=== PATIENT | female | born 1940 | race Caucasian/White ===

== ENCOUNTER 2023-01-08 07:42 | Outpatient (OUT) | payer MEDICARE, MEDICAID, SELFPAY ==
[2023-01-08 08:15] LABS: Basophils Percent Auto 0.6 % (0.2-2.0); Eosinophils Absolute Auto 0.2 10^3/uL (0.0-0.7); Eosinophils Percent Auto 2.9 % (0.9-7.0); Hematocrit 43.6 % (36.0-48.0); Hemoglobin 14.2 g/dL (12.0-16.0); Immature Granulocytes Abs Auto 0.04 10^3/uL (0.00-0.03); Immature Granulocytes Pct Auto 0.6 % (0.0-0.5); Lymphocytes Absolute Auto 1.6 10^3/uL (1.2-3.8); Lymphocytes Percent Auto 22.3 % (20.5-60.0); Mean Corpuscular HGB Conc 32.6 g/dL (29.9-35.2); Mean Corpuscular Hemoglobin 27.7 pg (26.7-34.0); Monocytes Absolute Auto 0.7 10^3/uL (0.3-0.8); Monocytes Percent Auto 9.9 % (1.7-12.0); Neutrophils Absolute Auto 4.6 10^3/uL (1.4-6.5); Neutrophils Percent Auto 63.7 % (43.0-75.0); Platelet Count 247 10^3/uL (150-450); Red Blood Count 5.13 10^6/uL (4.20-5.40); Red Cell Distribution Width 13.7 % (11.0-15.0); White Blood Count 7.2 10^3/uL (4.0-11.0)
[2023-01-08 09:22] LABS: Estimated Average Glucose 140 mg/dL; Glycohemoglobin A1C 6.5 % (4.5-6.2)
[2023-01-08 09:55] LABS: Microalbumin Urine Random 3.2 mg/dL (<=30.0)
[2023-01-08 09:58] LABS: Alanine Aminotransferase 41 U/L (14-59); Albumin Level 3.6 g/dL (3.4-5.0); Alkaline Phosphatase 63 U/L (46-116); Anion Gap 14.2; Aspartate Amino Transferase 19 U/L (15-37); BUN Creatinine Ratio 20.5; Bilirubin Direct 0.1 mg/dL (0.0-0.2); Bilirubin Total 0.4 mg/dL (0.2-1.0); Calcium 9.1 mg/dL (8.5-10.1); Chloride 102 mmol/L (98-107); Chol HDL Ratio 3.4; Cholesterol 143 mg/dL (<=200); Estimated GFR (African America >60 (>=60); Estimated GFR (Non-African Ame >60 (>=60); Globulin 3.7 g/dL; Glucose 149 mg/dL (74-106); HDL Cholesterol 42 mg/dL (40-60); LDL Cholesterol Calculated 74.4 mg/dL; Potassium 4.2 mmol/L (3.5-5.1); Sodium 140 mmol/L (136-145); Total Protein 7.3 g/dL (6.4-8.2); Triglycerides 133 mg/dL (<=150); VLDL CHOLESTEROL 26.6 mg/dL
== END 2023-01-08 07:43 | disposition home or self-care (01) ==
PROVIDERS: PCP Family Medicine; Visit Provider Family Medicine
DX: E11.65 Type 2 diabetes mellitus with hyperglycemia (principal); Z79.899 Other long term (current) drug therapy; I10 Essential (primary) hypertension
CPT/HCPCS: 36415; 80048; 80061; 80076; 82043; 83036; 85025

== ENCOUNTER 2023-07-17 11:50 | Outpatient (OUT) | payer MEDICARE, SELFPAY ==
[2023-07-17 12:17] LABS: Estimated Average Glucose 143 mg/dL; Glycohemoglobin A1C 6.6 % (4.5-6.2)
== END 2023-07-17 11:51 | disposition home or self-care (01) ==
LOC: LAB 11:51
PROVIDERS: PCP Family Medicine; Visit Provider Family Medicine
DX: E11.65 Type 2 diabetes mellitus with hyperglycemia (principal)
CPT/HCPCS: 36415; 83036

== ENCOUNTER 2024-01-14 07:53 | Outpatient (OUT) | payer MEDICARE, SELFPAY ==
[2024-01-14 08:12] LABS: Basophils Percent Auto 0.4 % (0.2-2.0); Eosinophils Absolute Auto 0.3 10^3/uL (0.0-0.7); Eosinophils Percent Auto 3.8 % (0.9-7.0); Hematocrit 40.1 % (36.0-48.0); Immature Granulocytes Abs Auto 0.03 10^3/uL (0.00-0.03); Immature Granulocytes Pct Auto 0.4 % (0.0-0.5); Lymphocytes Absolute Auto 1.9 10^3/uL (1.2-3.8); Lymphocytes Percent Auto 27.7 % (20.5-60.0); Mean Corpuscular HGB Conc 32.4 g/dL (29.9-35.2); Mean Corpuscular Hemoglobin 28.1 pg (26.7-34.0); Mean Corpuscular Volume 86.6 fL (81.0-99.0); Mean Platelet Volume 10.9 fL (9.5-13.5); Monocytes Absolute Auto 0.8 10^3/uL (0.3-0.8); Neutrophils Absolute Auto 3.9 10^3/uL (1.4-6.5); Neutrophils Percent Auto 55.7 % (43.0-75.0); Platelet Count 261 10^3/uL (150-450); Red Blood Count 4.63 10^6/uL (4.20-5.40); Red Cell Distribution Width 14.6 % (11.0-15.0); White Blood Count 6.9 10^3/uL (4.0-11.0)
--- OUTSIDE RECORDS SUMMARY | 2024-01-14 08:13 | XMS_ITS | CCD ---
Author Organization [facility] Care Team Providers Care Manager Training And Development Name Role Phone HERMES, DR EDWIGE Hennessy Consulting Unavailable NADERER, DR EDWIGE Hennessy Attending Unavailable NADERER, DR EDWIGE Hennessy Admitting Unavailable NADERER, DR EDWIGE Hennessy Primary Care Unavailable NADERER, DR EDWIGE Hennessy Primary Care Unavailable NADERER, DR EDWIGE Hennessy Consulting Unavailable NADERER, DR EDWIGE Hennessy Attending Unavailable NADERER, DR EDWIGE Hennessy Admitting Unavailable NADERER, EDWIGE Attending Unavailable NADERER, EDWIGE Attending Unavailable Problems Active Problems Problem Classification Problem Date Documented Da te Episodic/Chronic Diabetes mellitus with complications (5 sources) Type 2 diabetes mellitus with hyperglycemia; Translations: [TYPE 2 DM W/HYPERGLYCEMIA] Onset: 01-13-2022 Chronic Essential hypertension (4 sources) Essential (primary) hypertension; Translations: [ESSENTIAL PRIMARY HYPERTENSION] Onset: 01-11-2022 Chronic Past or Other Problems Problem Classification Problem Date Documented Da te Episodic/Chronic Other aftercare (1 source) Other long term acute care registered nurse (current) drug therapy; Translations: [OTH [employer]OL[employer]S CURRENT DRUG THERAPY] Onset: 01-13-2022 Episodic Results Test Name Value Interpretation Reference Range Facil ity GLYCOHEMOGLOBIN A1Con 2022 ADA RECOMMENDATION SEE BELOW Normal [facility] Comment on above: Result Comment: ADA RECOMMENDED LIMIT 4.0 - 6.0 ADA THERAPEUTIC TARGET < 7.0 ACTION SUGGESTED > 7.0 Performed By: #### A 1C #### [facility] [address] [address] [address] Sanya Jay Glucose [Mass/Vol] 146 mg/dL Normal [facility] Comment on above: Performed By: #### A 1C #### [facility] [address] [place], [place] [address] Dr. Sanya Jay HbA1c (Bld) [Mass fraction] 6.7 % Critically high 4.5-6.2 [facility] Comment on above: Performed By: #### A 1C #### [facility] [address] [place] [address] Dr. Sanya Jay CBC AUTO DIFFon 01-11-2022 BASO # 0.0 103/ul Normal 0.0-0.1 [facility] Comment on above: Performed By: #### C BC #### [facility] [address] [place] [address] Dr. Sanya Jay Basophils/100 WBC (Bld) 0.6 % Normal 0.2-2.0 [facility] Comment on above: Performed By: #### C BC #### [facility] [address] [place] [address] Dr. Sanya Jay EO # 0.2 103/ul Normal 0.0-0.7 [facility] Comment on above: Performed By: #### C BC #### [facility] [address] [place] [address] Dr. Sanya Jay Eosinophils/100 WBC (Bld) 3.9 % Normal 0.9-7.0 [facility] Comment on above: Performed By: #### C BC #### [facility] [address] [place] [address] Dr. Sanya Jay Erythrocyte distribution width (RBC) [Ratio] 13.5 % Normal 11.0-15.0 [facility] Comment on above: Performed By: #### C BC #### [facility] [address] [place] [address] Dr. Sanya Jay Hematocrit (Bld) [Volume fraction] 41.0 % Normal 36.0-48.0 [facility] Comment on above: Performed By: #### C BC #### [facility] [address] [place] [address] Dr. Sanya Jay Hemoglobin (Bld) [Mass/Vol] 13.2 g/dL Normal 12.0-16.0 [facility] Comment on above: Performed By: #### C BC #### [facility] [address] [place] [address] Dr. Sanya Jay IG # 0.05 10e3/ul Critically high 0.00-0.03 [facility] Comment on above: Performed By: #### C BC #### [facility] [address] [place] [address] Dr. Sanya Jay IG % 1.0 % Critically high 0.0-0.5 [facility] Comment on above: Performed By: #### C BC #### [facility] [address] [place] [address] Dr. Sanya Jay LYMPH # 1.3 103/ul Normal 1.2-3.8 [facility] Comment on above: Performed By: #### C BC #### [facility] [address] [place] [address] Dr. Sanya Jay Lymphocytes/100 WBC (Bld) 25.9 % Normal 20.5-60.0 [facility] Comment on above: Performed By: #### C BC #### [facility] [address] [place] [address] Dr. Sanya Jay MANUAL DIFF REQ NO Normal [facility] Comment on above: Performed By: #### C BC #### [facility] [address] [place] [address] Dr. Sanya Jay MCH (RBC) [Entitic mass] 27.8 pg Normal 26.7-34.0 [facility] Comment on above: Performed By: #### C BC #### [facility] [address] [place] [address] Dr. Sanya Jay MCHC (RBC) [Mass/Vol] 32.2 g/dL Normal 29.9-35.2 [facility] Comment on above: Performed By: #### C BC #### [facility] [address] [place] [address] Dr. Sanya Jay MCV (RBC) [Entitic vol] 86.3 fL Normal 81.0-99.0 [facility] Comment on above: Performed By: #### C BC #### [facility] [address] [place] [address] Dr. Sanya Jay MONO # 0.6 103/ul Normal 0.3-0.8 [facility] Comment on above: Performed By: #### C BC #### [facility] [address] [address] [address] Sanya Jay Monocytes/100 WBC (Bld) 12.4 % Critically high 1.7-12.0 [facility] Comment on above: Performed By: #### C BC #### [facility] [address] [address] [address] Sanya Jay NEUT # 2.7 103/ul Normal 1.4-6.5 [facility] Comment on above: Performed By: #### C BC #### [facility] [address] [address] [address] Sanya Jay Neutrophils/100 WBC (Bld) 56.2 % Normal 43.0-75.0 [facility] Comment on above: Performed By: #### C BC #### [facility] [address] [place] [address] Dr. Sanya Jay Platelet mean volume (Bld) [Entitic vol] 11.7 fL Normal 9.5-13.5 [facility] Comment on above: Performed By: #### C BC #### [facility] [address] [place] [address] Dr. Sanya Jay PLT 240 103/ul Normal 150-450 [facility] Comment on above: Performed By: #### C BC #### [facility] [address] [place] [address] Dr. Sanya Jay RBC 4.75 106/ul Normal 4.20-5.40 [facility] Comment on above: Performed By: #### C BC #### [facility] [address] [place] [address] Dr. Sanya Jay WBC 4.8 103/ul Normal 4.0-11.0 [facility] Comment on above: Performed By: #### C BC #### [facility] [address] [place] [address] Dr. Sanya Jay GLYCOHEMOGLOBIN A1Con 2021 ADA RECOMMENDATION SEE BELOW Normal [facility] Comment on above: Result Comment: ADA RECOMMENDED LIMIT 4.0 - 6.0 ADA THERAPEUTIC TARGET < 7.0 ACTION SUGGESTED > 7.0 Performed By: #### A 1C #### [facility] [address] [address] [address] Sanya Jay Glucose [Mass/Vol] 140 mg/dL Normal [facility] Comment on above: Performed By: #### A 1C #### [facility] [address] [address] [address] Sanya Jay HbA1c (Bld) [Mass fraction] 6.5 % Critically high 4.5-6.2 [facility] Comment on above: Performed By: #### A 1C #### [facility] [address] [address] [address] Sanya Jay LIPID PROFILEon 01-11-2022 CHOL-HDL RATIO NORM SEE BELOW Normal [facility] Comment on above: Result Comment: 3.3 - 4.4 LOW RISK 4.4 - 7.1 AVERAGE RISK 7.1 - 11.0 MODERATE RISK >11.0 HIGH RISK Performed By: #### L IPID, BMP, AST, ALT #### [facility] [address] [address] [address] Sanya Jay Cholesterol [Mass/Vol] 123 mg/dL Normal <=200 [facility] Comment on above: Performed By: #### L IPID, BMP, AST, ALT #### [facility] [address] [address] [address] Sanya Jay Cholesterol in HDL [Mass/Vol] 42 mg/dL Normal 40-60 [facility] Comment on above: Performed By: #### L IPID, BMP, AST, ALT #### [facility] [address] [address] [address] Sanya Jay Cholesterol in LDL [Mass/Vol] 57.8 mg/dL Normal [facility] Comment on above: Performed By: #### L IPID, BMP, AST, ALT #### [facility] [address] [address] [address] Sanya Jay Cholesterol.total/Cho lesterol in HDL [Mass ratio] 2.9 {ratio} Normal [facility] Comment on above: Performed By: #### L IPID, BMP, AST, ALT #### [facility] [address] [address] [address] Sanya Jay HDL NORMAL > or = 60 mg/dl - LOW CARDIOVASCULAR RISK <40 mg/dl - HIGH CARDIOVASCULAR RISK Normal [facility] Comment on above: Performed By: #### L IPID, BMP, AST, ALT #### [facility] [address] [address] [address] Sanya Jay LDL CALC NORMAL SEE BELOW Normal [facility] Comment on above: Result Comment: <100 mg/dl OPTIMAL 100 - 129 mg/dl NEAR OR ABOVE OPTIMAL 130 - 159 mg/dl BORDERLINE HIGH 160 - 189 mg/dl HIGH >190 mg/dl VERY HIGH Performed By: #### L IPID, BMP, AST, ALT #### [facility] [address] [address] [address] Sanya Jay Triglyceride [Mass/Vol] 116 mg/dL Normal <=150 [facility] Comment on above: Performed By: #### L IPID, BMP, AST, ALT #### [facility] [address] [address] [address] Sanya Jay VLDL CALC 23.2 mg/dL Normal [facility] Comment on above: Performed By: #### L IPID, BMP, AST, ALT #### [facility] [address] [address] [address] Sanya Jay PROF CHEM 8 (BAS METB)on Anion gap [Moles/Vol] 13.4 mmol/L Normal [facility] Comment on above: Performed By: #### L IPID, BMP, AST, ALT #### [facility] [address] [address] [address] Sanya Jay Calcium [Mass/Vol] 9.0 mg/dL Normal 8.5-10.1 [facility] Comment on above: Performed By: #### L IPID, BMP, AST, ALT #### [facility] [address] [address] [address] Sanya Jay Chloride [Moles/Vol] 103 mmol/L Normal 98-107 [facility] Comment on above: Performed By: #### L IPID, BMP, AST, ALT #### [facility] [address] [address] [address] Sanya Jay CO2 [Moles/Vol] 26.8 mmol/L Normal 21.0-32.0 [facility] Comment on above: Performed By: #### L IPID, BMP, AST, ALT #### [facility] [address] [address] [address] Sanya Jay Creatinine [Mass/Vol] 0.86 mg/dL Normal 0.55-1.02 [facility] Comment on above: Performed By: #### L IPID, BMP, AST, ALT #### [facility] [address] [address] [address] Sanya Jay EGFR-AF CYPRIOT >60 Normal >=60 [facility] Comment on above: Performed By: #### L IPID, BMP, AST, ALT #### [facility] [address] [address] [address] Sanya Jay EGFR-NON AF CYPRIOT >60 Normal >=60 [facility] Comment on above: Performed By: #### L IPID, BMP, AST, ALT #### [facility] [address] [place] [address] Dr. Sanya Jay Glucose [Mass/Vol] 200 mg/dL Critically high 74-106 [facility] Comment on above: Performed By: #### L IPID, BMP, AST, ALT #### [facility] [address] [address] [address] Sanya Jay Potassium [Moles/Vol] 4.2 mmol/L Normal 3.5-5.1 [facility] Comment on above: Performed By: #### L IPID, BMP, AST, ALT #### [facility] [address] [address] [address] Sanya Jay Sodium [Moles/Vol] 139 mmol/L Normal 136-145 [facility] Comment on above: Performed By: #### L IPID, BMP, AST, ALT #### [facility] [address] [address] [address] Sanya Jay Urea nitrogen [Mass/Vol] 19.0 mg/dL Critically high 7.0-18.0 [facility] Comment on above: Performed By: #### L IPID, BMP, AST, ALT #### [facility] [address] [place], [place] [address] Dr. Sanya Jay Urea nitrogen/Creatinine [Mass ratio] 22.1 mg/mg Normal [facility] Comment on above: Performed By: #### L IPID, BMP, AST, ALT #### [facility] [address] [address] [address] Sanya Jay SGOTon 01-11-2022 AST [Catalytic activity/Vol] 13 U/L Critically low 15-37 [facility] Comment on above: Performed By: #### L IPID, BMP, AST, ALT #### [facility] [address] [place] [address] Dr. Sanya Jay [facility] 01-11-2022 ALT [Catalytic activity/Vol] 22 U/L Normal 14-59 [facility] Comment on above: Performed By: #### L IPID, BMP, AST, ALT #### [facility] [address] [place] [address] Dr. Sanya aJy Encounters Encounter Date Encounter Type Care Provider Facility Start: 01-12-2024 End: 01-12-2024 ambulatory EDWIGE MIRZA Not Available Start: 07-17-2023 End: 07-17-2023 ambulatory EDWIGE MIRZA Not Available Start: 07-10-2022 End: 07-11-[address] EDWIGE MIRZA Facility:[facility] Start: 01-11-2022 End: 01-12-[address] EDWIGE MIRZA Facility:[facility] Payers Date Payer Category Payer Medicare [id number] 1940 Unknown [id number] 1940 Unknown [id number] 1940 Unknown [id number] 1940 Unknown [id number] Medicaid [id number] Summary Purpose Family History No Family History Records FoundNo Family History Records Found Advance Directives No Advanced Directives Records FoundNo Advanced Directives Records Found Additional Source Comments INFORMATION SOURCE (unrecogn ized section and content) DATE CREATED AUTHOR 07/14/2022 [facility] DATE CREATED AUTHOR AUTHOR'S ORGANIZ ATION 01/13/2024 [facility] EPIC FOR RECORDS PERTAINING TO PATIENTS WHO ARE OR HAVE BEEN ENROLLED IN A CHEMICAL DEPENDENCY/SUBSTANCEABUSE PROGRAM, SOME INFORMATION MAY BE OMITTED. This clinical summary was aggregated from multiple sources. Caution should be exercised in using it in the provision of clinical care. This summary normalizes information from multiple sources, and as a consequence, information in this document may materially change the coding, format and clinical context of patient data. In addition, data may be omitted in some cases. CLINICAL DECISIONS SHOULD BE BASED ON THE PRIMARY CLINICAL RECORDS. [facility] [employer] provides no warranty or guarantee of the accuracy or completeness of information in this document.
[2024-01-14 08:48] LABS: Alanine Aminotransferase 20 U/L (14-59); Albumin Globulin Ratio 0.9; Albumin Level 3.3 g/dL (3.4-5.0); Alkaline Phosphatase 71 U/L (46-116); Anion Gap 14.3; Aspartate Amino Transferase 12 U/L (15-37); Bilirubin Direct 0.1 mg/dL (0.0-0.2); Bilirubin Total 0.4 mg/dL (0.2-1.0); Calcium 9.2 mg/dL (8.5-10.1); Carbon Dioxide 27.5 mmol/L (21.0-32.0); Chloride 104 mmol/L (98-107); Chol HDL Ratio 2.8; Cholesterol 138 mg/dL (<=200); Estimated GFR (African America >60 (>=60); Estimated GFR (Non-African Ame >60 (>=60); Globulin 3.5 g/dL; Glucose 114 mg/dL (74-106); HDL Cholesterol 49 mg/dL (40-60); Potassium 3.8 mmol/L (3.5-5.1); Sodium 142 mmol/L (136-145); Total Protein 6.8 g/dL (6.4-8.2); Triglycerides 130 mg/dL (<=150)
[2024-01-14 10:45] LABS: Estimated Average Glucose 137 mg/dL; Glycohemoglobin A1C 6.4 % (4.5-6.2)
== END 2024-01-14 07:54 | disposition home or self-care (01) ==
LOC: LAB 07:55
PROVIDERS: PCP Family Medicine; Visit Provider Family Medicine
DX: Z79.899 Other long term (current) drug therapy (principal); E66.9 Obesity, unspecified; E11.65 Type 2 diabetes mellitus with hyperglycemia; I10 Essential (primary) hypertension
CPT/HCPCS: 36415; 80048; 80061; 80076; 82043; 83036; 84443; 85025

== ENCOUNTER 2024-10-21 11:16 | Outpatient (OUT) | payer MEDICARE, SELFPAY ==
--- OUTSIDE RECORDS SUMMARY | 2024-10-21 10:00 | XMS_ITS | Encounter Summary ---
Author Organization [facility] Address [address] [address] [place] [address] Care Team Providers Care Ed Case Manager Name Role Phone Alen Dunham MD Primary Care Provider [phone] Alen Dunham MD Unavailable Reason for Visit * Reason Comments Follow-up 6 m Encounter Details Date Type Department Care Team (Late st Contact Info) Description 10/21/2024 10:00 AM EDT [facility] [address] [address] Alen Dunham MD [address] [place] [id number] Type 2 diabetes mellitus with hyperglycemia, without long-term current use of insulin ([facility]) (Primary Dx); Essential hypertension, benign ([facility]); Stress reaction; Generalized osteoarthritis of multiple sites; Gastroesophageal reflux disease without esophagitis; Statin myopathy; Class 2 severe obesity due to excess calories with serious comorbidity and body mass index (BMI) of 35.0 to 35.9 in adult ([facility]) Social History Tobacco Use Types Packs/Day Years Used Date Smoking Tobacco: Never PHQ-2 Answer Date Recorded Patient Health Questionnaire-2 Score 0 04/07/2024 Comments Unknown Sex and Gender Information Value Date Recorded Sex Assigned at Not on file Legal Sex Female 7:55 AM EDT Gender Identity Not on file Sexual Orientation Not on file documented as of this encounter Last Filed Vital Signs Vital Sign Reading Time Taken Comments Blood Pressure 152/68 10/21/2024 10:02 AM EDT Pulse 64 10/21/2024 10:02 AM EDT Temperature 36.2 C (97.1 F) 10/21/2024 10:02 AM EDT Respiratory Rate 20 10/21/2024 10:02 AM EDT Oxygen Saturation 96% 10/21/2024 10:02 AM EDT Inhaled Oxygen Concentration - - Weight 88 kg (194 lb) 10/21/2024 10:02 AM EDT Height 157.5 cm (5' 2 ) 10/21/2024 10:02 AM EDT Body Mass Index 35.48 10/21/2024 10:02 AM EDT documented in this encounter Progress Notes * Alen Dunham MD - 10/21/2024 10:59 AM EDTAssociated Problem(s): Class 2 severe obesity due to excess calories with serious comorbidity and body mass index (BMI) of 35.0 to 35.9 in adult ([facility]) Weight loss indicated. * Alen Dunham MD - 10/21/2024 10:58 AM EDTAssociated Problem(s): Type 2 diabetes mellitus with hyperglycemia, without long-term current use of insulin ([facility]) Reports BS controlled and due for A1C. Stick to ADA diet and limit carbs. * Alen Dunham MD - 10/21/2024 10:58 AM EDTAssociated Problem(s): Stress reaction Stress worse but doesn't want medication and monitor. * Alen Dunham MD - 10/21/2024 10:58 AM EDTAssociated Problem(s): Statin myopathy Did not tolerate lipitor. * Alen Dunham MD - 10/21/2024 10:58 AM EDTAssociated Problem(s): Generalized osteoarthritis of multiple sites Pain stable and use naproxen PRN. Increase activity and walk regularly. * Alen Dunham MD - 10/21/2024 10:58 AM EDTAssociated Problem(s): Gastroesophageal reflux disease without esophagitis Symptoms controlled with omeprazole and continue. * Alen Dunham MD - 10/21/2024 10:58 AM EDTAssociated Problem(s): Essential hypertension, benign (CMS/HCC) BP again elevated and increase valsartan. Monitor PRN. Discussed DASH diet. * Alen Dunham MD - 10/21/2024 10:00 AM EDT Images from the original note were not included. Subjective Patient ID: Anastasiia Avitia is a 83 y.o. female who presents for Follow-up (6 m). Follow up DM, HTN, OA, stress, and GERD. BS well controlled and ranges 70-100 but average around 90. Tries to eat well and stick to ADA diet. Denies signs of elevated BS such as polyuria, polyphagia or polydipsia. Not checking BP away from office and elevated again today. Reports increased stress. Taking medication daily and tolerating without side effects. Anxiety worse. Son moved back in with her and has no job. Her daughter's do not like or talk to her. [id number]. Nervous and worry allthe time. Stressed out and at times overwhelmed. Thought racing and hard to clear mind. OA stable. Stiff and pain in hands, knees, and low back. Stiffness worse in am but improved once up and moving.Using OTC PRN and helps. GERD controlled with omeprazole. Denies epigastric pain or burning and notwaking up with symptoms. Review of Systems Respiratory: Negative for cough, shortness of breath and wheezing. Cardiovascular: Negative for chest pain and palpitations. Gastrointestinal: Negative for abdominal pain, diarrhea, nausea and vomiting. Genitourinary: Negative for dysuria. Objective Physical Exam Constitutional: General: She is not in acute distress. Appearance: Normal appearance. HENT: Head: Normocephalic. Right Ear: Tympanic membrane normal. Left Ear: Tympanic membrane normal. Eyes: Extraocular Movements: Extraocular movements intact. Pupils: Pupils are equal, round, and reactive to light. Cardiovascular: Rate and Rhythm: Normal rate and regular rhythm. Heart sounds: No murmur heard. No friction rub. No gallop. Pulmonary: Effort: Pulmonary effort is normal. Breath sounds: Normal breath sounds. No wheezing, rhonchi or rales. Abdominal: General: Bowel sounds are normal. There is no distension. Palpations: Abdomen is soft. Tenderness: There is no abdominal tenderness. There is no guarding or rebound. Musculoskeletal: Cervical back: Neck supple. Right lower leg: No edema. Left lower leg: No edema. Neurological: Mental Status: She is alert. Assessment/Plan Problem List Items Addressed This Visit Essential hypertension, benign (CMS/HCC) BP again elevated and increase valsartan. Monitor PRN. Discussed DASH diet. Relevant Medications valsartan (Diovan) 320 MG tablet Gastroesophageal reflux disease without esophagitis Symptoms controlled with omeprazole and continue. Type 2 diabetes mellitus with hyperglycemia, without long-term current use of insulin (CMS/HCC) - Primary Reports BS controlled and due for A1C. Stick to ADA diet and limit carbs. Relevant Orders Hemoglobin A1c Stress reaction Stress worse but doesn't want medication and monitor. Generalized osteoarthritis of multiple sites Pain stable and use naproxen PRN. Increase activity and walk regularly. Statin myopathy Did not tolerate lipitor. documented in this encounter Plan of Treatment Upcoming Encounters Date Type Department Care Team (Late st Contact Info) Description 04/12/2025 10:30 AM EST Office Visit [facility] [address] [address] Alen Dunham MD [address] [place] [address] Scheduled Orders Name Type Priority Associated Diagnoses Orde r Schedule Hemoglobin A1c Lab Routine Type 2 diabetes mellitus with hyperglycemia, without long-term current use of insulin ([facility]) Expected: 10/21/2024 (Approximate), Expires: 10/21/2025 documented as of this encounter Visit Diagnoses Diagnosis Type 2 diabetes mellitus with hyperglycemia, without long-term current use of insulin ([facility])- Primary Essential hypertension, benign ([facility]) Essential hypertension, benign Stress reaction Unspecified acute reaction to stress Generalized osteoarthritis of multiple sites Generalized osteoarthrosis, involving multiple sites Gastroesophageal reflux disease without esophagitis Esophageal reflux Statin myopathy Toxic myopathy Class 2 severe obesity due to excess calories with serious comorbidity and body mass index (BMI) of 35.0 to 35.9 in adult ([facility]) documented in this encounter Additional Health Concerns Assessment Noted Time PHQ-9 Depression Total Score: 0 04/07/20 24 10:00 AM EST documented as of this encounter Care Teams Ed Case Manager Relationship Specialty Start Date End Date Alen Dunham MD [address] [place] [phone] PCP - General Family Medicine 07/04/23 Alen Dunham MD [address] [place] [address] PCP - ACO Reach 06/25/24 documented as of this encounter
--- OUTSIDE RECORDS SUMMARY | 2024-10-21 11:24 | XMS_ITS | Clinical Summary ---
Author Organization [facility] Address [address] [facility] [place] [address] Care Team Providers Care Delivery Crew Worker Name Role Phone Alen Dunham MD Primary Care Provider [phone] Alen Dunham MD Unavailable Allergies Active Allergy Reactions Criticality Noted Date Comments Aspirin 04/07/2024 Sulfamethoxazole-Trimetho prim Other,GI intolerance,Dizziness 07/04/2023 confused Lisinopril Cough 07/04/2023 Ibuprofen GI intolerance 07/04/2023 GI upset Penicillins GI intolerance 07/04/2023 Pentazocine Other 07/04/2023 Confusion Diazepam GI intolerance 07/04/2023 Medications amLODIPine (Norvasc) 10 MG tabletIndicatio ns:Essential hypertension, benign (CMS/HCC) Take 1 tablet (10 mg) by mouth Daily 30 tablet 4 025 Active metoprolol tartrate (Lopressor) 50 MG tabletIndicatio ns:Essential hypertension, benign (CMS/HCC) Take 1 tablet (50 mg) by mouth in the morning and 1 tablet (50 mg) before bedtime. 60 tablet 4 025 Active metFORMIN XR (Glucophage-XR) 500 MG 24 hr tabletIndicatio ns:Type 2 diabetes mellitus with hyperglycemia, without long-term current use of insulin (CMS/HCC) Take 2 tablets (1,000 mg) by mouth in the morning and 2 tablets (1,000 mg) before bedtime. 120 tablet 11 4 025 Active naproxen (Naprosyn) 500 MG tabletIndicatio ns:Chronic pain of right knee Take 1 tablet (500 mg) by mouth in the morning and 1 tablet (500 mg) in the evening. Take with meals. 180 tablet 3 5 026 Active pioglitazone (Actos) 30 MG tabletIndicatio ns:Type 2 diabetes mellitus with hyperglycemia, without long-term current use of insulin (CMS/HCC) Take 1 tablet (30 mg) by mouth Daily 90 tablet 3 5 026 Active omeprazole (PriLOSEC) [address] capsuleIndicati ons:Gastroesoph ageal reflux disease without esophagitis Take 1 capsule (20 mg) by mouth in the morning. Take before meals. 30 capsule 11 5 026 Active glipiZIDE (Glucotrol) 10 MG tabletIndicatio ns:Type 2 diabetes mellitus with hyperglycemia, without long-term current use of insulin (CMS/HCC) Take 2 tablets (20 mg) by mouth in the morning and 2 tablets (20 mg) in the evening. Take before meals. 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 Medicare annual wellness visit, subsequent 04/07 Assessment & Plan (04/07/2024 10:43 AM EST): Reviewed labs. Discussed proper diet and regular aerobic exercise. Need aerobic exercise 5-6 days a week for 30 minutes at a time. Smaller portions and limit total calories. Tetanus every 10 years. Advised not to smoke. Encounter for long-term current use of medicatio n 01/12/2024 Essential hypertension, benign 07/17/2023 Assessment & Plan (10/21/2024 10:58 AM EDT): BP again elevated and increase valsartan. Monitor PRN. Discussed DASH diet. Assessment & Plan (01/12/2024 10:46 AM EDT): BP elevated and increase valsartan. Monitor PRN. Discussed DASH diet. Assessment & Plan (07/17/2023 12:27 PM EST): BP controlled and monitor PRN. BPPV (benign paroxysmal positional vertigo) 06/20 Chronic pain of right knee 07/17/2023 Gastroesophageal reflux disease without esophagi tis 07/17/2023 Assessment & Plan (10/21/2024 10:58 AM EDT): Symptoms controlled with omeprazole and continue. Assessment & Plan (01/12/2024 10:46 AM EDT): Symptoms controlled with omeprazole and continue. Assessment & Plan (07/17/2023 12:27 PM EST): Symptoms controlled with omeprazole and continue. Type 2 diabetes mellitus wit h hyperglycemia, without long-term current use of insulin 07/17/2023 Assessment & Plan (10/21/2024 10:58 AM EDT): Reports BS controlled and due for A1C. Stick to ADA diet and limit carbs. Assessment & Plan (01/12/2024 10:46 AM EDT): Reports BS controlled and due for A1C. Stick to ADA diet and limit carbs. Assessment & Plan (07/17/2023 12:28 PM EST): Reports BS controlled and due for A1C. Stick to ADA diet and limit carbs. Stress reaction 07/17/2023 Assessment & Plan (10/21/2024 10:58 AM EDT): Stress worse but doesn't want medication and monitor. Assessment & Plan (01/12/2024 10:46 AM EDT): Stress stable without medication and monitor. Assessment & Plan (07/17/2023 12:28 PM EST): Stress stable without medication and monitor. Class 2 severe obesity due t o excess calories with serious comorbidity and body mass index (BMI) of 35.0 to 35.9 in adult 07/17/2023 Assessment & Plan (10/21/2024 10:59 AM EDT): Weight loss indicated. Generalized osteoarthritis of multiple sites Assessment & Plan (10/21/2024 10:58 AM EDT): Pain stable and use naproxen PRN. Increase activity and walk regularly. Assessment & Plan (01/12/2024 10:46 AM EDT): Pain stable and use naproxen PRN. Increase activity and walk regularly. Assessment & Plan (07/17/2023 12:28 PM EST): Pain stable and use naproxen PRN. Increase activity and walk regularly. Resolved Problems Problem Noted Date Diagnosed Date Resolved Date Statin medication declined by patient 07/17/2023 04/07/2024 Encounters Date Type Department Care Team Description 10/21/2024 10:00 AM EDT Office Visit [facility] [address] [place] [phone] Alen Dunham MD Type 2 diabetes mellitus with hyperglycemia, without long-term current use of insulin (CMS/HCC) (Primary Dx); Essential hypertension, benign (CMS/HCC); Stress reaction; Generalized osteoarthritis of multiple sites; Gastroesophageal reflux disease without esophagitis; Statin myopathy; Class 2 severe obesity due to excess calories with serious comorbidity and body mass index (BMI) of 35.0 to 35.9 in adult ([facility]) 10/21/2024 Bamboo flowsheet [facility] [address] [place] [phone] Alen Dunham MD from Last 3 Months Family History Medical History Relation Name Comments Cancer Father Relation Name Status Comments Father Social History Tobacco Use Types Packs/Day Years Used Date Smoking Tobacco: Never Tobacco Cessation:Counseling Given: Not Answered PHQ-2 Answer Date Recorded Patient Health Questionnaire-2 Score 0 04/07/2024 Comments Unknown Sex and Gender Information Value Date Recorded Sex Assigned at Not on file Legal Sex Female 7:55 AM EDT Gender Identity Not on file Sexual Orientation Not on file Last Filed Vital Signs Vital Sign Reading [...] Mass Index 35.48 10/21/2024 10:02 AM EDT Plan of Treatment Upcoming Encounters Date Type Department Care Team (Late st Contact Info) Description 04/12/2025 10:30 AM EST Office Visit [facility] [address] [place] [address] Alen Dunham MD [address] [place] [phone] Health Maintenance Due Date Last Done Comments Pneumococcal Vaccine: 65+ Ye ars (1 of 2 - PCV) 1959 Diabetes: Hemoglobin A1C 07/16/2024 024, 07/17/2023, 04/13/2018 Diabetes: Urine Protein Screening 01/13/20252 024, 01/08/2023 Influenza Vaccine (Season Ended) 2025 Medicare Annual Wellness (AWV) 04/07/2025 04/07/2024 Diabetes: Retinopathy Screening 05/27/2025 Insurance MEDICARE Care Teams Delivery Crew Worker Relationship Specialty Start Date End Date Alen Dunham MD [address] [place] [phone] PCP - General Family Medicine 07/04/23 Alen Dunham MD [address] [place] [phone] PCP - ACO Reach 06/25/24
--- OUTSIDE RECORDS SUMMARY | 2024-10-21 11:24 | XMS_ITS | Encounter Summary ---
Author Organization [facility] Address [address] [facility] [place] [address] Care Team Providers Care Making Department Preparer Name Role Phone Alen Dunham MD Primary Care Provider [phone] Alen Dunham MD Unavailable Encounter Details Date Type Department Care Team (Late Contact Info) Description 10/21/2024 Bamboo flowsheet [facility] [address] [place] [phone] Alen Dunham MD [address] [place] [phone] Social History Tobacco Use Types Packs/Day Years Used Date Smoking Tobacco: Never PHQ-2 Answer Date Recorded Patient Health Questionnaire-2 Score 0 04/07/2024 Comments Unknown Sex and Gender Information Value Date Recorded Sex Assigned at Not on file Legal Sex Female 7:55 AM EDT Gender Identity Not on file Sexual Orientation Not on file documented as of this encounter Plan of Treatment Upcoming Encounters Date Type Department Care Team (Late st Contact Info) Description 04/12/2025 10:30 AM EST Office Visit [facility] [address] [place] [phone] Alen Dunham MD [address] [place] [phone] documented as of this encounter Visit Diagnoses Not on filedocumented in this encounter Additional Health Concerns Assessment Noted Time PHQ-9 Depression Total Score: 0 04/07/20 24 10:00 AM EST documented as of this encounter Care Teams Making Department Preparer Relationship Specialty Start Date End Date Alen Dunham MD [address] [place] [phone] PCP - General Family Medicine 07/04/23 Alen Dunham MD [address] [place] [phone] PCP - ACO Reach 06/25/24 documented as of this encounter
--- OUTSIDE RECORDS SUMMARY | 2024-10-21 11:24 | XMS_ITS | Clinical Summary ---
Author Organization [employer] tem Address [id number] [address] [place] [address] Care Team Providers Care Bulk Receiver Name Role Phone Alen Dunham MD Primary Care Provider [phone] Allergies Active Allergy Reactions Criticality Noted Date Comments Codeine 03/29/2018 Ibuprofen 03/29/2018 Penicillins 03/29/2018 Sulfa (Sulfonamide Antibiotics) 03/19 Pentazocine Lactate 03/29/2018 Diazepam 03/29/2018 Medications glipiZIDE (GLUCOTROL) 10 mg tablet Take 20 mg by mouth 2 (two) times a day before meals. Active metFORMIN (GLUCOPHAGE) 1000 mg tablet Take 2,000 mg by mouth 2 (two) times a day with meals. Active amLODIPine (NORVASC) 10 mg tablet Take 10 mg by mouth daily. Active losartan (COZAAR) 50 mg tablet Take 50 mg by mouth daily. Active metoprolol tartrate (LOPRESSOR) 50 mg tablet Take 50 mg by mouth 2 (two) times a day. Active omeprazole (PriLOSEC) 20 mg capsule Take 20 mg by mouth daily. Active naproxen (NAPROSYN) 500 mg tablet Take 500 mg by mouth 2 (two) times a day with meals. Active aspirin 81 mg Take 81 mg by mouth daily. Active ondansetron (ZOFRAN) 4 mg tablet Take 1 tablet (4 mg total) by mouth every 8 (eight) hours as needed for nausea or vomiting for up to 12 doses. 12 tablet 03/29/2018 Active Social History Tobacco Use Types Packs/Day Years Used Date Smoking Tobacco: Never Smokeless Tobacco: Never Childcare Answer Date Recorded Childcare Unknown 10/28/2018 Employment Answer Date Recorded Employment Unknown 10/28/2018 Purpose - Life Answer Date Recorded Purpose and direction in life Unknown Comments Unknown Sex and Gender Information Value Date Recorded Sex Assigned at Not on file Legal Sex Female 11:52 AM EDT Gender Identity Not on file Sexual Orientation Not on file Last Filed Vital Signs Vital Sign Reading Time Taken Comments Blood Pressure 138/47 03/29/2018 7:50 PM EST Pulse 90 03/29/2018 7:50 PM EST Temperature 36.2 C (97.2 F) 03/29/2018 6:01 PM EST Respiratory Rate 18 03/29/2018 7:50 PM EST Oxygen Saturation 96% 03/29/2018 6:01 PM EST Inhaled Oxygen Concentration - - Weight 87.5 kg (193 lb) 03/29/2018 6:01 PM EST Height 157.5 cm (5' 2 ) 03/29/2018 6:01 PM EST Body Mass Index 35.3 03/29/2018 6:01 PM EST Plan of Treatment Not on file Medical Devices Not on file Insurance MEDICARE MEDICAID [place] Care Teams Bulk Receiver Relationship Specialty Start Date End Date Alen Dunham MD PCP - General 10/21/16
[2024-10-21 12:24] LABS: Estimated Average Glucose 140 mg/dL; Glycohemoglobin A1C 6.5 % (4.5-6.2)
== END 2024-10-21 11:17 | disposition home or self-care (01) ==
LOC: LAB 11:19
PROVIDERS: PCP Family Medicine; Visit Provider Family Medicine
DX: E11.65 Type 2 diabetes mellitus with hyperglycemia (principal)
CPT/HCPCS: 36415; 83036

== ENCOUNTER 2025-02-25 14:10 | Emergency (ER) | payer MEDICARE, SELFPAY ==
--- OUTSIDE RECORDS SUMMARY | 2025-02-25 14:26 | XMS_ITS | CCD ---
Author Organization [facility] Care Team Providers Care Shot Fireman Name Role Phone DR ALEN MIRZA Consulting Unavailable HERMES, DR ALEN Hennessy Attending Unavailable HERMES, DR ALEN Hennessy Admitting Unavailable HERMES, DR ALEN Hennessy Primary Care Unavailable HERMES, DR ALEN Hennessy Primary Care Unavailable HERMES, DR ALEN Hennessy Consulting Unavailable HERMES, DR ALEN Hennessy Attending Unavailable HERMES, DR ALEN Hennessy Admitting Unavailable Alen Mirza MD Primary Care Provider [phone] HERMES, ALEN Attending Unavailable HERMES, ALEN Attending Unavailable HERMES, ALEN Attending Unavailable Alen Mirza MD Unavailable Allergies Allergy Classification Reported Allergen(s) Allergy Type Date of Onset Reaction(s) Facility (11 sources) Diazepam Allergy to substance 07-04-19 GI intolerance [facility] Healthcare (11 sources) Ibuprofen Drug Allergy 07-04-19 24 GI intolerance [facility] Healthcare (11 sources) Lisinopril Allergy to substance 07-04-19 24 Cough [facility] Healthcare (11 sources) Penicillins Drug Allergy 07-04-19 24 GI intolerance [facility] Healthcare (11 sources) Pentazocine Drug Allergy 07-04-19 24 Other [facility] Healthcare (11 sources) Sulfamethoxazole / Trimethoprim Drug Allergy 07-04-19 24 Other, GI intolerance, Dizziness [facility] Healthcare (6 sources) Aluminum aspirin Drug Allergy 04-07-20 24 [facility] Healthcare Medications Current Medications Medication Drug Class(es) Dates Sig (Normalized) Sig (Original) amLODIPine 10 mg oral tablet (11 sources) Dihydropyridine Calcium Channel Niharika Start: 12-17-2023 End: 12-16-2024 take 1 tablet by mouth once daily amLODIPine (Norvasc) 10 MG tablet Indications: Essential hypertension, benign (CMS/HCC) Take 1 tablet (10 mg) by mouth Daily 30 tablet 11 12/17/2023 12/16/2024 Active atorvastatin 10 mg oral tablet (5 sources) HMG-CoA Reductase Inhibitor Start: 04-07-2024 End: 10-21-2024 take 1 tablet by mouth at bedtime atorvastatin (Lipitor) 10 MG tablet Indications: Type 2 diabetes mellitus with hyperglycemia, without long-term current use of insulin (CMS/HCC) Take 1 tablet (10 mg) by mouth at bedtime 30 tablet 5 04/07/2024 10/21/2024 Discontinued glipiZIDE 10 mg oral tablet (11 sources) Sulfonylurea Start: 07-31-2023 End: 07-19-2025 take 2 tablets by mouth in the morning glipiZIDE (Glucotrol) 10 MG tablet Indications: Type 2 diabetes mellitus with hyperglycemia, without long-term current use of insulin (CMS/HCC) Take 2 tablets (20 mg) by mouth in the morning and 2 tablets (20 mg) in the evening. Take before meals. 360 tablet 3 07/19/2024 07/19/2025 Active 24 hr metFORMIN hydrochloride 500 mg extended release oral tablet (11 sources) Biguanide Start: 03-24-2024 End: 03-24-2025 take 2 tablets by mouth every twenty-four hours in the morning metFORMIN XR (Glucophage-XR) 500 MG 24 hr tablet Indications: Type 2 diabetes mellitus with hyperglycemia, without long-term current use of insulin (CMS/HCC) Take 2 tablets (1,000 mg) by mouth in the morning and 2 tablets (1,000 mg) before bedtime. 120 tablet 03/24/2024 03/24/2025 Active Start: 04-07-2023 take 2 tablets by mo [facility] every twenty-four hours in the morning metFORMIN XR (Glucophage-XR) 500 MG 24 hr tablet Take 2 tablets by mouth in the morning and 2 tablets before bedtime. 04/07/2023 Active metoprolol tartrate 50 mg oral tablet (11 sources) beta-Adrenergic Niharika Start: 01-21-2024 End: 01-20-2025 take 1 tablet by mouth in the morning metoprolol tartrate (Lopressor) 50 MG tablet Indications: Essential hypertension, benign (CMS/HCC) Take 1 tablet (50 mg) by mouth in the morning and 1 tablet (50 mg) before bedtime. 60 tablet 11 01/21/2024 01/20/2025 Active Start: 05-05-2023 take 1 tablet by lyla th in the morning metoprolol tartrate (Lopressor) 50 MG tablet Take 1 tablet by mouth in the morning and 1 tablet before bedtime. 05/05/2023 Active naproxen 500 mg oral tablet (11 sources) Nonsteroidal Anti-inflammatory Drug Start: 06-03-2024 End: 06-03-2025 take 1 tablet by mouth in the morning naproxen (Naprosyn) 500 MG tablet Indications: Chronic pain of right knee Take 1 tablet (500 mg) by mouth in the morning and 1 tablet (500 mg) in the evening. Take with meals. 180 tablet 3 06/03/2024 06/03/2025 Active Start: 04-07-2023 take 1 tablet by lyla th in the morning naproxen (Naprosyn) 500 MG tablet Take 1 tablet by mouth in the morning and 1 tablet in the evening. Take with meals. 04/07/2023 Active omeprazole 20 mg delayed release oral capsule (11 sources) Proton Pump Inhibitor Start: 07-23-2023 End: 07-19-2025 take 1 capsule by mouth before mealtime omeprazole (PriLOSEC) [address] capsule Indications: Gastroesophageal reflux disease without esophagitis Take 1 capsule (20 mg) by mouth in the morning. Take before meals. 30 capsule 11 07/19/2024 07/19/2025 Active pioglitazone 30 mg oral tablet (11 sources) Peroxisome Proliferator Receptor alpha Agonist, Peroxisome Proliferator Receptor gamma Agonist, Thiazolidinedione Start: 07-02-2023 End: 06-03-2025 take 1 tablet by mouth once daily pioglitazone (Actos) 30 MG tablet Indications: Type 2 diabetes mellitus with hyperglycemia, without long-term current use of insulin ([facility]) Take 1 tablet (30 mg) by mouth Daily 90 tablet 3 06/03/2024 06/03/2025 Active SITagliptin 100 mg oral tablet (7 sources) Dipeptidyl Peptidase 4 Inhibitor Start: 02-08-2023 End: 04-07-2024 take 1 tablet by mouth in the morning Januvia 100 MG tablet Take 1 tablet by mouth in the morning. 02/08/2023 04/07/2024 Discontinued valsartan 320 mg oral tablet (15 sources) Angiotensin 2 Receptor Niharika Start: 10-21-2024 take 1 tablet by mouth once daily valsartan (Diovan) 320 MG tablet Indications: Essential hypertension, benign (CMS/HCC) Take 1 tablet (320 mg) by mouth Daily 90 tablet 3 10/21/2024 Active Start: 10-21-2024 take 1 tablet by lyla th once daily valsartan (Diovan) 320 MG tablet Indications: Essential hypertension, benign (CMS/HCC) Take 1 tablet (320 mg) by mouth Daily 90 tablet 3 10/21/2024 Active Start: 10-21-2024 take 1 tablet by lyla th once daily valsartan (Diovan) 320 MG tablet Indications: Essential hypertension, benign (CMS/HCC) Take 1 tablet (320 mg) by mouth Daily 90 tablet 3 10/21/2024 Active Start: 01-12-2024 End: 10-21-2024 take 1 tablet by mouth once daily valsartan (Diovan) 160 MG tablet Indications: Essential hypertension, benign (CMS/HCC) Take 1 tablet (160 mg) by mouth Daily 90 tablet 3 01/12/2024 10/21/2024 Discontinued Start: 07-17-2023 End: 01-12-2024 take 1 tablet by mouth once daily valsartan (Diovan) 80 MG tablet Indications: Essential hypertension, benign (CMS/HCC) Take 1 tablet (80 mg) by mouth Daily 90 tablet 3 07/17/2023 01/12/2024 Discontinued (Reorder) Problems Active Problems Problem Classification Problem Date Documented Date Episodic/Chronic Anxiety disorders (15 sources) Acute stress disorder; Translations: [Acute stress reaction] Onset: 07-17-2023 07-17-2023 Chronic Diabetes mellitus with complications (20 sources) Type 2 diabetes mellitus with hyperglycemia; Translations: [Hyperglycemia due to type 2 diabetes mellitus] Onset: 01-13-2022 Chronic Esophageal disorders (15 sources) Gastroesophageal reflux disease without esophagitis; Translations: [Gastro-esophageal reflux disease without esophagitis] Onset: 07-17-2023 07-17-2023 Chronic Essential hypertension (19 sources) Essential (primary) hypertension; Translations: [Benign essential hypertension] Onset: 01-11-2022 Chronic Osteoarthritis (15 sources) Degenerative joint disease involving multiple joints; Translations: [Polyosteoarthritis, unspecified] Onset: 07-17-2023 07-17-2023 Chronic Other nervous system disorders (5 sources) Drug-induced myopathy; Translations: [Toxic myopathy] Onset: 10-21-2024 10-21-2024 Episodic Other nutritional; endocrine; and metabolic disorders (12 sources) Body mass index 30+ - obesity; Translations: [Obesity, unspecified] Onset: 07-17-2023 07-17-2023 Chronic Other nutritional; endocrine; and metabolic disorders (5 sources) Severe obesity; Translations: [Class 2 severe obesity due to excess calories with serious comorbidity and body mass index (BMI) of 35.0 to 35.9 in adult ([facility])] Onset: 07-17-2023 10-21-2024 Chronic Past or Other Problems Problem Classification Problem Date Documented Da te Episodic/Chronic Conditions associated with dizziness or vertigo (11 sources) Benign paroxysmal positional vertigo; Translations: [Benign paroxysmal vertigo, unspecified ear] Onset: 07-17-2023 07-17-2023 Episodic Mood disorders (6 sources) Mood disorders Onset: 04-07-2024 04-07-2024 Other aftercare (1 source) Other residential (current) drug therapy; Translations: [OTH RETAIL SUPPORT MANAGER CURRENT DRUG THERAPY] Onset: 01-13-2022 Episodic Other aftercare (7 sources) Long-term current use of drug therapy; Translations: [Other manager intermediate (current) drug therapy] Onset: 01-12-2024 01-12-2024 Episodic Other aftercare (5 sources) Patient encounter status; Translations: [Other residential (current) drug therapy] Onset: 01-12-2024 01-12-2024 Episodic Other non-traumatic joint disorders (11 sources) Pain in right knee; Translations: [Pain in joint, lower leg] Onset: 07-17-2023 07-17-2023 Episodic Residual codes; unclassified (11 sources) Statin declined; Translations: [Procedure and treatment not carried out because of patient's decision for unspecified reasons] Onset: 07-17-2023 Resolved: 04-07-2024 07-17-2023 Episodic Results Test Name Value Interpretation Reference Range Facility [facility] HEMOGLOBIN A1Con 025 Glucose [Mass/Vol] 140 mg/dL [facility] HbA1c (Bld) [Mass fraction] 6.5 % High 4.5 - 6.2 % [facility] Healthcare Comment on above: ADA RECOMMENDED LIMI T 4.0 - 6.0 ADA THERAPEUTIC TARGET < 7.0 ACTION SUGGESTED > 7.0 Interpretation and review of laboratory results Abnormal [facility] ALL CBC WITH AUTO DIFFon BASOPHILS ABSOLUTE [facility]O 0.0 [facility] Basophils/100 WBC (Bld) 0.4 % 0.2 - 2.0 % [facility] Eosinophils/100 WBC (Bld) 3.8 % 0.9 - 7.0 % [facility] Erythrocyte distribution width (RBC) [Ratio] 14.6 % 11.0 - 15.0 % [facility] Hematocrit (Bld) [Volume fraction] 40.1 % 36.0 - 48.0 % [facility] Hemoglobin (Bld) [Mass/Vol] 13.0 g/dL 12.0 - 16.0 g/dL [facility] IMMATURE GRANULOCYTES ABS AUTO 0.03 [facility] Immature granulocytes/100 WBC (Bld) 0.4 % 0.0 - 0.5 % [facility] LYMPHOCYTES ABSOLUTE AUTO 1.9 [facility] Lymphocytes/100 WBC (Bld) 27.7 % 20.5 - 60.0 % [facility] MCH (RBC) [Entitic mass] 28.1 pg 26.7 - 34.0 pg [facility] MCHC (RBC) [Mass/Vol] 32.4 g/dL 29.9 - 35.2 g/dL [facility] MCV (RBC) [Entitic vol] 86.6 fL 81.0 - 99.0 fL [facility] MONOCYTES ABSOLUTE AUTO 0.8 [facility] Monocytes/100 WBC (Bld) 12.0 % 1.7 - 12.0 % [facility] NEUTROPHILS ABSOLUTE AUTO 3.9 [facility] Neutrophils/100 WBC (Bld) 55.7 % 43.0 - 75.0 % [facility] Platelet mean volume (Bld) [Entitic vol] 10.9 fL 9.5 - 13.5 fL [facility] EO # 0.3 [facility] PLT 261 [facility] RBC 4.63 [facility] WBC 6.9 [facility] GLYCOHEMOGLOBIN A1Con 2022 ADA RECOMMENDATION SEE BELOW Normal [facility] Comment on above: Result Comment: ADA RECOMMENDED LIMIT 4.0 - 6.0 ADA THERAPEUTIC TARGET < 7.0 ACTION SUGGESTED > 7.0 Performed By: #### A 1C #### [facility] [address] [place] [address] Dr. Sanya Jay Glucose [Mass/Vol] 146 mg/dL Normal [facility] Comment on above: Performed By: #### A 1C #### [facility] [address] [place] [address] Dr. Sanya Jay HbA1c (Bld) [Mass fraction] 6.7 % Critically high 4.5-6.2 [facility] Comment on above: Performed By: #### A 1C #### [facility] [address] [place] [address] Dr. Sanya Jay CBC AUTO DIFFon 01-11-2022 BASO # 0.0 103/ul Normal 0.0-0.1 [facility] Comment on above: Performed By: #### C BC #### [facility] [address] [place] [address] Dr. Sanya Jay Basophils/100 WBC (Bld) 0.6 % Normal 0.2-2.0 [facility] Comment on above: Performed By: #### C BC #### [facility] [address] [place] [address] Dr. Sanya Jay EO # 0.2 103/ul Normal 0.0-0.7 [facility] Comment on above: Performed By: #### C BC #### [facility] [address] [place] [address] Dr. Sanya Jay Eosinophils/100 WBC (Bld) 3.9 % Normal 0.9-7.0 [facility] Comment on above: Performed By: #### C BC #### [facility] [address] [place] [address] Dr. Sanya Jay Erythrocyte distribution width (RBC) [Ratio] 13.5 % Normal 11.0-15.0 [facility] Comment on above: Performed By: #### C BC #### [facility] [address] [place] [address] Dr. Sanya Jay Hematocrit (Bld) [Volume fraction] 41.0 % Normal 36.0-48.0 [facility] Comment on above: Performed By: #### C BC #### [facility] [address] [place] [address] Dr. Sanya Jay Hemoglobin (Bld) [Mass/Vol] 13.2 g/dL Normal 12.0-16.0 [facility] Comment on above: Performed By: #### C BC #### [facility] [address] [address] [address] Sanya Jay IG # 0.05 10e3/ul Critically high 0.00-0.03 [facility] Comment on above: Performed By: #### C BC #### [facility] [address] [place] [address] Dr. Sanya Jay IG % 1.0 % Critically high 0.0-0.5 [facility] Comment on above: Performed By: #### C BC #### [facility] [address] [place] [address] Dr. Sanya Jay LYMPH # 1.3 103/ul Normal 1.2-3.8 [facility] Comment on above: Performed By: #### C BC #### [facility] [address] [place] [address] Dr. Sanya Jay Lymphocytes/100 WBC (Bld) 25.9 % Normal 20.5-60.0 [facility] Comment on above: Performed By: #### C BC #### [facility] [address] [place] [address] Dr. Sanya Jay MANUAL DIFF REQ NO Normal [facility] Comment on above: Performed By: #### C BC #### [facility] [address] [place] [address] Dr. Sanya Jay MCH (RBC) [Entitic mass] 27.8 pg Normal 26.7-34.0 [facility] Comment on above: Performed By: #### C BC #### [facility] [address] [place] [address] Dr. Sanya Jay MCHC (RBC) [Mass/Vol] 32.2 g/dL Normal 29.9-35.2 [facility] Comment on above: Performed By: #### C BC #### [facility] [address] [place] [address] Dr. Sanya Jay MCV (RBC) [Entitic vol] 86.3 fL Normal 81.0-99.0 [facility] Comment on above: Performed By: #### C BC #### [facility] [address] [place] [address] Dr. Sanya Jya MONO # 0.6 103/ul Normal 0.3-0.8 [facility] Comment on above: Performed By: #### C BC #### [facility] [address] [place] [address] Dr. Sanya Jay Monocytes/100 WBC (Bld) 12.4 % Critically high 1.7-12.0 [facility] Comment on above: Performed By: #### C BC #### [facility] [address] [place] [address] Dr. Sanya Jay NEUT # 2.7 103/ul Normal 1.4-6.5 [facility] Comment on above: Performed By: #### C BC #### [facility] [address] [place] [address] Dr. Sanya Jay Neutrophils/100 WBC (Bld) 56.2 % Normal 43.0-75.0 [facility] Comment on above: Performed By: #### C BC #### [facility] [address] [place] [address] Dr. Sanya Jay Platelet mean volume (Bld) [Entitic vol] 11.7 fL Normal 9.5-13.5 [facility] Comment on above: Performed By: #### C BC #### [facility] [address] [place] [address] Dr. Sanya Jay PLT 240 103/ul Normal 150-450 [facility] Comment on above: Performed By: #### C BC #### [facility] [address] [place] [address] Dr. Sanya Jay RBC 4.75 106/ul Normal 4.20-5.40 [facility] Comment on above: Performed By: #### C BC #### [facility] [address] [address] [address] Sanya Jay WBC 4.8 103/ul Normal 4.0-11.0 [facility] Comment on above: Performed By: #### C BC #### [facility] [address] [address] [address] Sanya Jay GLYCOHEMOGLOBIN A1Con 2021 ADA RECOMMENDATION SEE BELOW Normal [facility] Comment on above: Result Comment: ADA RECOMMENDED LIMIT 4.0 - 6.0 ADA THERAPEUTIC TARGET < 7.0 ACTION SUGGESTED > 7.0 Performed By: #### A 1C #### [facility] [address] [place] [address] Dr. Sanya Jay Glucose [Mass/Vol] 140 mg/dL Normal [facility] Comment on above: Performed By: #### A 1C #### [facility] [address] [place] [address] Dr. Sanya Jay HbA1c (Bld) [Mass fraction] 6.5 % Critically high 4.5-6.2 [facility] Comment on above: Performed By: #### A 1C #### [facility] [address] [place] [address] Dr. Sanya Jay LIPID PROFILEon 01-11-2022 CHOL-HDL RATIO NORM SEE BELOW Normal [facility] Comment on above: Result Comment: 3.3 - 4.4 LOW RISK 4.4 - 7.1 AVERAGE RISK 7.1 - 11.0 MODERATE RISK >11.0 HIGH RISK Performed By: #### L IPID, BMP, AST, ALT #### [facility] [address] [place] [address] Dr. Sanya Jay Cholesterol [Mass/Vol] 123 mg/dL Normal <=200 [facility] Comment on above: Performed By: #### L IPID, BMP, AST, ALT #### [facility] [address] [place] [address] Dr. Sanya Jay Cholesterol in HDL [Mass/Vol] 42 mg/dL Normal 40-60 [facility] Comment on above: Performed By: #### L IPID, BMP, AST, ALT #### [facility] [address] [address] [address] Sanya Jay Cholesterol in LDL [Mass/Vol] 57.8 mg/dL Normal [facility] Comment on above: Performed By: #### L IPID, BMP, AST, ALT #### [facility] [address] [address] [address] Sanya Jay Cholesterol.total/Cho lesterol in HDL [Mass ratio] 2.9 {ratio} Normal [facility] Comment on above: Performed By: #### L IPID, BMP, AST, ALT #### [facility] [address] [address] [address] Sanya Jay HDL NORMAL > or = 60 mg/dl - LOW CARDIOVASCULAR RISK <40 mg/dl - HIGH CARDIOVASCULAR RISK Normal [facility] Comment on above: Performed By: #### L IPID, BMP, AST, ALT #### [facility] [address] [address] [address] Sanya Jay LDL CALC NORMAL SEE BELOW Normal [facility] Comment on above: Result Comment: <100 mg/dl OPTIMAL 100 - 129 mg/dl NEAR OR ABOVE OPTIMAL 130 - 159 mg/dl BORDERLINE HIGH 160 - 189 mg/dl HIGH >190 mg/dl VERY HIGH Performed By: #### L IPID, BMP, AST, ALT #### [facility] [address] [address] [address] Sanya Jay Triglyceride [Mass/Vol] 116 mg/dL Normal <=150 [facility] Comment on above: Performed By: #### L IPID, BMP, AST, ALT #### [facility] [address] [address] [address] Sanya Jay VLDL CALC 23.2 mg/dL Normal [facility] Comment on above: Performed By: #### L IPID, BMP, AST, ALT #### [facility] [address] [address] [address] Sanya Jay PROF CHEM 8 (BAS METB)on Anion gap [Moles/Vol] 13.4 mmol/L Normal [facility] Comment on above: Performed By: #### L IPID, BMP, AST, ALT #### [facility] [address] [address] [address] Sanya Jay Calcium [Mass/Vol] 9.0 mg/dL Normal 8.5-10.1 [facility] Comment on above: Performed By: #### L IPID, BMP, AST, ALT #### [facility] [address] [address] [address] Sanya Jay Chloride [Moles/Vol] 103 mmol/L Normal 98-107 [facility] Comment on above: Performed By: #### L IPID, BMP, AST, ALT #### [facility] [address] [place] [address] Dr. Sanya Jay CO2 [Moles/Vol] 26.8 mmol/L Normal 21.0-32.0 [facility] Comment on above: Performed By: #### L IPID, BMP, AST, ALT #### [facility] [address] [place] [address] Dr. Sanya Jay Creatinine [Mass/Vol] 0.86 mg/dL Normal 0.55-1.02 [facility] Comment on above: Performed By: #### L IPID, BMP, AST, ALT #### [facility] [address] [place] [address] Dr. Sanya Jay EGFR-AF DOMINICAN >60 Normal >=60 [facility] Comment on above: Performed By: #### L IPID, BMP, AST, ALT #### [facility] [address] [place] [address] Dr. Sanya Jay EGFR-NON AF DOMINICAN >60 Normal >=60 [facility] Comment on above: Performed By: #### L IPID, BMP, AST, ALT #### [facility] [address] [place] [address] Dr. Sanya Jay Glucose [Mass/Vol] 200 mg/dL Critically high 74-106 [facility] Comment on above: Performed By: #### L IPID, BMP, AST, ALT #### [facility] [address] [place] [address] Dr. Sanya Jay Potassium [Moles/Vol] 4.2 mmol/L Normal 3.5-5.1 [facility] Comment on above: Performed By: #### L IPID, BMP, AST, ALT #### [facility] [address] [place] [address] Dr. Sanya Jay Sodium [Moles/Vol] 139 mmol/L Normal 136-145 [facility] Comment on above: Performed By: #### L IPID, BMP, AST, ALT #### [facility] [address] [place] [address] Dr. Sanya Jay Urea nitrogen [Mass/Vol] 19.0 mg/dL Critically high 7.0-18.0 [facility] Comment on above: Performed By: #### L IPID, BMP, AST, ALT #### [facility] [address] [place] [address] Dr. Sanya Jay Urea nitrogen/Creatinine [Mass ratio] 22.1 mg/mg Normal [facility] Comment on above: Performed By: #### L IPID, BMP, AST, ALT #### [facility] [address] [place] [address] Dr. Sanya Price 01-11-2022 AST [Catalytic activity/Vol] 13 U/L Critically low 15-37 [facility] Comment on above: Performed By: #### L IPID, BMP, AST, ALT #### [facility] [address] [place] [address] Dr. Sanya Domingo 01-11-2022 ALT [Catalytic activity/Vol] 22 U/L Normal 14-59 [facility] Comment on above: Performed By: #### L IPID, BMP, AST, ALT #### [facility] [address] [place] [address] Dr. Sanya Jay Vital Signs Date Time Vital Sign Value Performing Clinician [place] [facility] 10-21-2024 10:020400 Body height 157.5 cm Alen Mirza MD Work Phone: [facility] [facility] 10-21-2024 10:02-0400 Body mass index (BMI) [Ratio] 35.48 kg/m2 Alen Mirza MD Work Phone: [facility] 10-21-2024 10:02-0400 Body temperature 97.11 [degF] Alen Mirza MD Work Phone: [facility] 10-21-2024 10:02-0400 Body weight 88 kg Alen Mirza MD Work Phone: [facility] 10-21-2024 10:02-0400 Diastolic blood pressure 68 mm[Hg] Alen Mirza MD Work Phone: [facility] 10-21-2024 10:02-0400 Heart rate 64 /min Alen Mirza MD Work Phone: [facility] 10-21-2024 10:02-0400 Respiratory rate 20 /min Alen Mirza MD Work Phone: [facility] 10-21-2024 10:02-0400 SaO2% (BldA) [Mass fraction] 96 % Alen Mirza MD Work Phone: [facility] 10-21-2024 10:02-0400 Systolic blood pressure 152 mm[Hg] Alen Mirza MD Work Phone: [facility] 04-07-2024 10:05-0500 Body height 157.5 cm Alen Mirza MD Work Phone: [facility] 04-07-2024 10:05-0500 Body mass index (BMI) [Ratio] 36.58 kg/m2 Alen Mirza MD Work Phone: [facility] 04-07-2024 10:05-0500 Body temperature 97.11 [degF] Alen Mirza MD Work Phone: [facility] 04-07-2024 10:05-0500 Body weight 90.72 kg Alen Mirza MD Work Phone: [facility] 04-07-2024 10:05-0500 Diastolic blood pressure 58 mm[Hg] Alen Mirza MD Work Phone: [facility] 04-07-2024 10:05-0500 Heart rate 65 /min Alen Mirza MD Work Phone: [facility] 04-07-2024 10:05-0500 Respiratory rate 22 /min Alen Mirza MD Work Phone: [facility] 04-07-2024 10:05-0500 SaO2% (BldA) [Mass fraction] 97 % Alen Mirza MD Work Phone: [facility] 04-07-2024 10:05-0500 Systolic blood pressure 140 mm[Hg] Alen Mirza MD Work Phone: [facility] 01-12-2024 10:11-0400 Body height 157.5 cm Alen Mirza MD Work Phone: [facility] 01-12-2024 10:11-0400 Body mass index (BMI) [Ratio] 36.21 kg/m2 Alen Mirza MD Work Phone: [facility] 01-12-2024 10:11-0400 Body temperature 97.5 [degF] Alen Mirza MD Work Phone: [facility] 01-12-2024 10:11-0400 Body weight 89.81 kg Alen Mirza MD Work Phone: [facility] 01-12-2024 10:11-0400 Diastolic blood pressure 58 mm[Hg] Alen Mirza MD Work Phone: [facility] 01-12-2024 10:11-0400 Heart rate 68 /min Alen Mirza MD Work Phone: [facility] 01-12-2024 10:11-0400 Respiratory rate 20 /min Alen Mirza MD Work Phone: [facility] 01-12-2024 10:11-0400 SaO2% (BldA) [Mass fraction] 95 % Alen Mirza MD Work Phone: [facility] 01-12-2024 10: Systolic blood pressure 160 mm[Hg] Alen Mirza MD Work Phone: [facility] Encounters Encounter Date Encounter Type Care Provider Facility Start: 10-21-2024 End: 10-21-2024 Bamboo flowsheet Alen Mirza MD Work Phone: [facility] Start: 10-21-2024 End: 10-21-2024 Bamboo flowsheet Alen Mirza MD Work Phone: [facility] Start: 10-21-2024 End: 10-21-2024 Clinisync Result Encounter Alen Mirza MD Work Phone: [facility] External Department Unsolicited Start: 10-21-2024 End: 10-21-2024 Office outpatient visit 25 minutes Alen Mirza MD Work Phone: [facility] Comment on above: Type 2 diabetes josette itus with hyperglycemia, without long-term current use of insulin ([facility]) (Primary Dx); Essential hypertension, benign ([facility]); Stress reaction; Generalized osteoarthritis of multiple sites; Gastroesophageal reflux disease without esophagitis; Statin myopathy; Class 2 severe obesity due to excess calories with serious comorbidity and body mass index (BMI) of 35.0 to 35.9 in adult ([facility]) Start: 10-21-2024 End: 10-21-2024 ambulatory ALEN MIRZA Not Available Start: 04-07-2024 End: 04-07-2024 Bamboo flowsheet Alen Mirza MD Work Phone: [facility] Start: 04-07-2024 End: 04-07-2024 Bamboo flowsheet Alen Mirza MD Work Phone: [facility] Start: 04-07-2024 End: 04-07-2024 Patient encounter procedure Alen Mirza MD Work Phone: [facility] Work Phone: Start: 04-07-2024 End: 04-07-2024 Postop follow up visit related to original px Alen Mirza MD Work Phone: [facility] Comment on above: Medicare annual well ness visit, subsequent (Primary Dx); Type 2 diabetes mellitus with hyperglycemia, without long-term current use of insulin (CMS/HCC) Start: 04-07-2024 End: 04-07-2024 ambulatory ALEN MIRZA Not Available Start: 01-14-2024 End: 01-14-2024 Clinisync Result Encounter Alen Mirza MD Work Phone: [facility] External Department Unsolicited Start: 01-14-2024 End: 01-14-2024 Clinisync Result Encounter Alen Mirza MD Work Phone: [facility] External Department Unsolicited Start: 01-12-2024 End: 01-12-2024 Bamboo flowsheet Alen Mirza MD Work Phone: [facility] Start: 01-12-2024 End: 01-12-2024 Bamboo flowsheet Alen Mirza MD Work Phone: [facility] Start: 01-12-2024 End: 01-12-2024 Office outpatient visit 25 minutes Alen Mirza MD Work Phone: [facility] Comment on above: Type 2 diabetes josette itus with hyperglycemia, without long-term current use of insulin (CMS/HCC) (Primary Dx); Essential hypertension, benign (CMS/[facility]); Stress reaction; Generalized osteoarthritis of multiple sites; Gastroesophageal reflux disease without esophagitis; Encounter for long-term current use of medication; Obesity (BMI 30-39.9); Body mass index (BMI) 36.0-36.9, adult Start: 01-12-2024 End: 01-12-2024 ambulatory ALEN MIRZA Not Available Start: 07-10-2022 End: 07-11-[address] ALEN MIRZA Facility:[facility] Start: 01-11-2022 End: 01-12-[address] ALEN MIRZA Facility:[facility] Procedures Date Procedure Procedure Detail Performing Clinician Start: 10-21-2024 MLR HEMOGLOBIN A1C Alen Mirza MD Work Phone: Start: 01-14-2024 ALL CBC WITH AUTO DIFF Alen Mirza MD Work Phone: Plan of Treatment Date Care Activity Detail Author Start: 05-27-2025 Glaucoma screening Diabetes: R etinopathy Screening [facility] Start: 04-12-2025 End: 04-12-2025 Patient encounter procedure 04/12/2025 10:30 AM EST Office Visit [facility] [address] [place] [address] Alen Mirza MD [address] [place] [address] [facility] Start: 04-07-2025 Medicare Annual Wellness (AWV) Medicare Annual Wellness (AWV) [facility] Start: 01-17-2025 Influenza vaccination Influenz a Vaccine (Season Ended) [facility] Start: 01-13-2025 Urine screening for protein Diabetes: Urine Protein Screening [facility] Start: 10-21-2024 End: 10-21-2025 Hemoglobin A1c/Hemoglobin.total in Blood Hemoglobin A1c Lab Routine Type 2 diabetes mellitus with hyperglycemia, without long-term current use of insulin ([facility]) Expected: 10/21/2024 (Approximate), Expires: 10/21/2025 [facility] Work Phone: Comment on above: Expected: 10/21/2024 (Approximate), Expires: 10/21/2025 Start: 10-21-2024 End: 10-21-2024 Patient encounter procedure 10/21/2024 10:00 AM EDT Office Visit [facility] [address] [place] [address] Alen Mirza MD [address] [place] [address] Arrived [facility] Comment on above: Arrived Start: 10-05-2024 End: 10-05-2024 Patient encounter procedure 10/05/2024 10:30 AM EDT Office Visit [facility] [address] [place] [address] Alen Mirza MD [address] [place] [id number] [facility] Start: 07-16-2024 Hemoglobin A1c measurement Diabetes: Hemoglobin A1C [facility] Start: 04-07-2024 End: 04-07-2024 Patient encounter procedure [facility] Comment on above: Arrived Start: 01-18-2024 Influenza vaccination Influenza Vacc ine (#1) [facility] Start: 01-15-2024 Hemoglobin A1c measurement Diabetes: Hemoglobin A1C [facility] Start: 01-12-2024 End: 01-11-2025 Albumin, urine, random Albumin, urine, random Lab Routine Type 2 diabetes mellitus with hyperglycemia, without long-term current use of insulin (CMS/HCC) Expected: 01/12/2024 (Approximate), Expires: 01/11/2025 [facility] Work Phone: Comment on above: Expected: 01/12/2024 (Approximate), Expires: 01/11/2025 Start: 01-12-2024 End: 01-11-2025 Basic metabolic 1998 panel - Serum or Plasma Basic metabolic panel Lab Routine Essential hypertension, benign (CMS/HCC) Expected: 01/12/2024 (Approximate), Expires: 01/11/2025 [facility] Comment on above: Expected: 01/12/2024 (Approximate), Expires: 01/11/2025 Start: 01-12-2024 End: 01-11-2025 CBC W Auto Differential panel - Blood CBC and differential Lab Routine Encounter for long-term current use of medication Expected: 01/12/2024 (Approximate), Expires: 01/11/2025 [facility] Comment on above: Expected: 01/12/2024 (Approximate), Expires: 01/11/2025 Start: 01-12-2024 End: 01-11-2025 Hemoglobin A1c/Hemoglobin.total in Blood Hemoglobin A1c Lab Routine Type 2 diabetes mellitus with hyperglycemia, without long-term current use of insulin (CMS/HCC) Expected: 01/12/2024 (Approximate), Expires: 01/11/2025 [facility] Comment on above: Expected: 01/12/2024 (Approximate), Expires: 01/11/2025 Start: 01-12-2024 End: 01-11-2025 Hepatic function 2000 panel - Serum or Plasma Hepatic function panel Lab Routine Encounter for long-term current use of medication Expected: 01/12/2024 (Approximate), Expires: 01/11/2025 [facility] Comment on above: Expected: 01/12/2024 (Approximate), Expires: 01/11/2025 Start: 01-12-2024 End: 01-11-2025 Lipid 1996 panel - Serum or Plasma Lipid panel Lab Routine Type 2 diabetes mellitus with hyperglycemia, without long-term current use of insulin ([facility]) Expected: 01/12/2024 (Approximate), Expires: 01/11/2025 [facility] Comment on above: Expected: 01/12/2024 (Approximate), Expires: 01/11/2025 Start: 01-12-2024 End: 01-11-2025 Thyrotropin [Units/volume] in Serum or Plasma TSH Lab Routine Obesity (BMI 30-39.9) Expected: 01/12/2024 (Approximate), Expires: 01/11/2025 [facility] Comment on above: Expected: 01/12/2024 (Approximate), Expires: 01/11/2025 Start: 01-12-2024 End: 01-12-2024 Patient encounter procedure 01/12/2024 10:15 AM EDT Office Visit [facility] [address] [place] [address] Alen Mirza MD [address] [place] [address] Arrived [facility] Comment on above: Arrived Start: 01-09-2024 Urine screening for protein Diabetes: Urine Protein Screening [facility] Start: 07-14-2018 Hemoglobin A1c measurement Diabetes: Hemoglobin A1C [facility] Start: 1961 Pneumococcal Vaccine : 65+ Years (1 of 2 - PCV) Pneumococcal Vaccine: 65+ Years (1 of 2 - PCV) [facility] Start: 1948 Pneumococcal Vaccine : 65+ Years (1 of 2 - PCV) Pneumococcal Vaccine: 65+ Years (1 of 2 - PCV) [facility] Start: 1940 Medicare Annual Wellness (AWV) Medicare Annual Wellness (AWV) [facility] Payers Date Payer Category Payer Medicare [id number] 1957 Medicaid [id number] 1957 Medicare [id number] 1940 Unknown [id number] 1942 Unknown [id number] 1942 Unknown [id number] 1942 Unknown [id number] 1942 Unknown [id number] Social History Date Type Detail Facility Start: 07-04-2023 Tobacco smoking status NHIS Never sm oked tobacco [facility] Start: 01-12-2024 End: 04-07-2024 History of Social function [facility] Start: 01-12-2024 End: 04-07-2024 Tobacco use panel [facility] Start: 1940 Sex assigned at Not on file [facility] History of Present illness Narrative 10-21-2024 Alen Mirza MD - 10/21/2024 10:59 AM Narciso Mirza MD - 10/21/2024 10:58 AM Narciso Mirza MD - 10/21/2024 10:58 AM Narciso Mirza MD - 10/21/2024 10:58 AM EDT Note Date & Type Note Facility 10-21-2024 History of Presen t illness Narrative Associated Problem(s): Class 2 severe obesity due to excess calories with serious comorbidity and body mass index (BMI) of 35.0 to 35.9 in adult ([facility]) Weight loss indicated. Associated Problem(s): Type 2 diabetes mellitus with hyperglycemia, without long-term current use of insulin ([facility]) Reports BS controlled and due for A1C. Stick to ADA diet and limit carbs. Associated Problem(s): Stress reaction Stress worse but doesn't want medication and monitor. 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 Associated Problem(s): Generalized osteoarthritis of multiple sites Pain stable and use naproxen PRN. Increase activity and walk regularly. Associated Problem(s): Gastroesophageal reflux disease without esophagitis Symptoms controlled with omeprazole and continue. Associated Problem(s): Essential hypertension, benign ([facility]) BP again elevated and increase valsartan. Monitor PRN. Discussed DASH diet. Images from the original note were not [...] do not like or talk to her. [id number]. Nervous and worry all the time. Stressed out and at times overwhelmed. Thought racing and hard to clear mind. OA stable. Stiff and pain in hands, knees, and low back. Stiffness worse in am but improved once up and moving. Using OTC PRN and helps. GERD controlled with omeprazole. Denies epigastric pain or burning and not waking up with symptoms. Review of Systems Respiratory: [...] not tolerate lipitor. documented in this encounter [facility] History of Present illness Narrative 04-07-2024 Alen Mirza MD - 04/07/2024 10:43 AM ESTAlen Mirza MD - 04/07/2024 10:00 AM EST Note Date & Type Note Facility 04-07-2024 History of Presen t illness Narrative Associated Problem(s): Medicare annual wellness visit, subsequent Reviewed labs. Discussed proper diet and regular aerobic exercise. Need aerobic exercise 5-6 days a week for 30 minutes at a time. Smaller portions and limit total calories. Tetanus every 10 years. Advised not to smoke. Images from the original note were not included. Subjective Patient ID: Anastasiia Avitia is a 83 y.o. female who presents for Medicare Annual Wellness Visit Subsequent. Presents for medicare annual wellness visit. Patient feels well today. Weight up 7 pounds in the past year. Not active due to OA and no regular exercise. Tries to watch diet and eat healthy. Increased fruits and vegetables. Smaller portions and limits snacking. Tries to limit total daily calories. Reviewed recent labs. BS controlled around 80-90. Review of Systems Respiratory: Negative for cough, [...] Assessment/Plan Problem List Items Addressed This Visit Type 2 diabetes mellitus with hyperglycemia, without long-term current use of insulin ([facility]) Relevant Medications atorvastatin (Lipitor) 10 MG tablet Medicare annual wellness visit, subsequent - Primary Reviewed labs. Discussed proper diet and regular aerobic exercise. Need aerobic exercise 5-6 days a week for 30 minutes at a time. Smaller portions and limit total calories. Tetanus every 10 years. Advised not to smoke. documented in this encounter [facility] History of Present illness Narrative 01-12-2024 Alen Mirza MD - 01/12/2024 10:46 AM Narciso Mirza MD - 01/12/2024 10:46 AM Narciso Mirza MD - 01/12/2024 10:46 AM Narciso Mirza MD - 01/12/2024 10:46 AM EDT Note Date & Type Note Facility 01-12-2024 History of Presen t illness Narrative Associated Problem(s): Type 2 diabetes mellitus with hyperglycemia, without long-term current use of insulin ([facility]) Reports BS controlled and due for A1C. Stick to ADA diet and limit carbs. Associated Problem(s): Stress reaction Stress stable without medication and monitor. Associated Problem(s): Generalized osteoarthritis of multiple sites Pain stable and use naproxen PRN. Increase activity and walk regularly. Associated Problem(s): Gastroesophageal reflux disease without esophagitis Symptoms controlled with omeprazole and continue. Associated Problem(s): Essential hypertension, benign (CMS/HCC) BP elevated and increase valsartan. Monitor PRN. Discussed DASH diet. Images from the original note were not included. Subjective Patient ID: Anastasiia Avitia is a 83 y.o. female who presents for Follow-up (6 m). Follow up DM, HTN, OA, stress, and GERD. Patient feels well today. BS controlled and ranges 76-129 but average around 95. Tries to eat well and stick to ADA diet. Denies signs of elevated BS such as polyuria, polyphagia or polydipsia. Not checking BP away from office and elevated today. Taking medication daily and tolerating without side effects. Anxiety stable. Not as stressed out or overwhelmed. Not as nervous or worry as much. Not as nath or irritable. OA stable. Stiff and pain in hands, knees, and low back. Stiffness worse in am but improved once up and moving. Using OTC PRN and helps. GERD controlled with omeprazole. Denies epigastric pain or burning and not waking up with symptoms. Review of Systems Respiratory: [...] This Visit Essential hypertension, benign (CMS/HCC) BP elevated and increase valsartan. Monitor PRN. Discussed DASH diet. Relevant Medications valsartan (Diovan) 160 MG tablet Other Relevant Orders Basic metabolic panel Gastroesophageal reflux disease without esophagitis Symptoms controlled with omeprazole and continue. Type 2 diabetes mellitus with hyperglycemia, without long-term current use of insulin (CMS/HCC) - Primary Reports BS controlled and due for A1C. Stick to ADA diet and limit carbs. Relevant Orders Albumin, urine, random Hemoglobin A1c Lipid panel Stress reaction Stress stable without medication and monitor. Obesity (BMI 30-39.9) Relevant Orders TSH Generalized osteoarthritis of multiple sites Pain stable and use naproxen PRN. Increase activity and walk regularly. Encounter for long-term current use of medication Relevant Orders CBC and differential Hepatic function panel documented in this encounter [facility] Evaluation note Note Date & Type Note Facility Evaluation note Diagnosis Type 2 diabetes mellitus with hyperglycemia, without long-term current use of insulin (CMS/HCC)- Primary Essential hypertension, benign (CMS/HCC) Essential hypertension, benign Generalized osteoarthritis of multiple sites Generalized osteoarthrosis, involving multiple sites Stress reaction Unspecified acute reaction to stress Gastroesophageal reflux disease without esophagitis Esophageal reflux Type 2 diabetes mellitus with hyperglycemia, without long-term current use of insulin (CMS/HCC)- Primary Essential hypertension, benign (CMS/HCC) Essential hypertension, benign Stress reaction Unspecified acute reaction to stress Generalized osteoarthritis of multiple sites Generalized osteoarthrosis, involving multiple sites Gastroesophageal reflux disease without esophagitis Esophageal reflux Encounter for long-term current use of medication Obesity (BMI 30-39.9) Body mass index (BMI) 36.0-36.9, adult Medicare annual wellness visit, subsequent- Primary Type 2 diabetes mellitus with hyperglycemia, without long-term current use of insulin ([facility]) documented in this encounter [facility] Evaluation note Note Date & Type Note Facility Evaluation note Diagnosis Type 2 diabetes mellitus with hyperglycemia, without long-term current use of insulin ([facility])- Primary Essential hypertension, benign ([facility]) Essential hypertension, benign Stress reaction Unspecified acute reaction to stress Generalized osteoarthritis of multiple sites Generalized osteoarthrosis, involving multiple sites Gastroesophageal reflux disease without esophagitis Esophageal reflux Encounter for long-term current use of medication Obesity (BMI 30-39.9) Body mass index (BMI) 36.0-36.9, adult documented in this encounter [facility] Evaluation note Note Date & Type Note Facility Evaluation note Diagnosis Type 2 diabetes mellitus with hyperglycemia, without long-term current use of insulin ([facility])- Primary Essential hypertension, benign ([facility]) Essential hypertension, benign Generalized osteoarthritis of multiple sites Generalized osteoarthrosis, involving multiple sites Stress reaction Unspecified acute reaction to stress Gastroesophageal reflux disease without esophagitis Esophageal reflux Type 2 diabetes mellitus with hyperglycemia, without long-term current use of insulin ([facility])- Primary Essential hypertension, benign ([facility]) Essential hypertension, benign Stress reaction Unspecified acute reaction to stress Generalized osteoarthritis of multiple sites Generalized osteoarthrosis, involving multiple sites Gastroesophageal reflux disease without esophagitis Esophageal reflux Encounter for long-term current use of medication Obesity (BMI 30-39.9) Body mass index (BMI) 36.0-36.9, adult Medicare annual wellness visit, subsequent- Primary Type 2 diabetes mellitus with hyperglycemia, without long-term current use of insulin ([facility]) Type 2 diabetes mellitus with hyperglycemia, without long-term current use of insulin ([facility])- Primary Essential hypertension, benign ([facility]) Essential hypertension, benign Stress reaction Unspecified acute reaction to stress Generalized osteoarthritis of multiple sites Generalized osteoarthrosis, involving multiple sites Gastroesophageal reflux disease without esophagitis Esophageal reflux Statin myopathy Toxic myopathy Class 2 severe obesity due to excess calories with serious comorbidity and body mass index (BMI) of 35.0 to 35.9 in adult ([facility]) documented in this encounter [facility] Summary Purpose Family History No Family History Records FoundNo Family History Records Found Advance Directives No Advanced Directives Records FoundNo Advanced Directives Records Found Additional Source Comments INFORMATION SOURCE (unrecogn ized section and content) DATE CREATED AUTHOR 07/14/2022 [facility] DATE CREATED AUTHOR AUTHOR'S ORGANIZ ATION 10/22/2024 [facility] Care Teams (unrecognized sec tion and content) Shot Fireman Relationship Specialty Start Date End Date Alen Mirza MD [address] [place] [address] PCP - General Family Medicine 07/04/23 Shot Fireman Relationship Specialty Start Date End Date Alen Mirza MD [address] [place] [address] PCP - General Family Medicine 07/04/23 Shot Fireman Relationship Specialty Start Date End Date Alen Mirza MD [address] [place] [address] PCP - General Family Medicine 07/04/23 Shot Fireman Relationship Specialty Start Date End Date Alen Mirza MD [address] [place] [address] PCP - General Family Medicine 07/04/23 Shot Fireman Relationship Specialty Start Date End Date Alen Mirza MD [address] [place] [address] PCP - General Family Medicine 07/04/23 Alen Mirza MD [address] [place] [address] PCP - ACO Reach 06/25/24 [employer] Relationship Specialty Start Date End Date Alen Mirza MD [address] [place] [address] PCP - General Family Medicine 07/04/23 Alen Mirza MD [address] [place] [address] PCP - O Reach 06/25/24 Shot [employer] Relationship Specialty Start Date End Date Alen Mirza MD [address] [place] [address] PCP - General Family [facility] 07/04/23 Alen Mirza MD [address] [place] [address] PCP - O Reach 06/25/24 Reason for Visit (unrecogniz ed section and content) Reason Comments Medicare Annual Wellness Visit Subsequen t Reason Comments Follow-up 6 m FOR RECORDS PERTAINING TO PATIENTS WHO ARE [...] BE BASED ON THE PRIMARY CLINICAL RECORDS. [facility] [employer] [facility]. provides no warranty or guarantee of the accuracy or completeness of information in this document.
[2025-02-25 14:29] VITALS: BP 162/58; PULSE 74; TEMP 36.7; O2SAT 96; BMI 34.6
--- NOTE | 2025-02-25 14:55 | XR_ITS ---
[facility] [place] [id number] Patient Name: RAIMUNDO ARIAS MRN: [id number] date: 1940 Sex: F Assigned Patient Location: ER Current Patient Location: ER Accession/Order Number: [id number] Exam Date: 02/25/2025 15:08 Report Date: 02/25/2025 15:23 At the request of: CLINT WHITTEN MD Procedure: XR knee RT 3V RIGHT KNEE - 3 views CLINICAL HISTORY: Atraumatic pain COMPARISON: Right knee 05/28/2018 FINDINGS: Small knee joint effusion. Mild degenerative changes without calcinosis of the menisci. No acute bony process. Bones are grossly demineralized. XR/XR knee RT 3V IMPRESSION: MODERATE DEGENERATIVE CHANGES WITHOUT ACUTE BONY PROCESS. Impression dictated by: Reji Goode Jr., D.O. 02/25/2025 3:23 PM Dictation Location: [place] [address] Electronically authenticated by: [id number] Y Date: 02/25/2025 15:23
--- NOTE | 2025-02-25 15:00 | ED.GENADUL1 ---
HPI HPI - General Adult General Chief complaint: Extremity Injury, Lower Stated complaint: R KNEE PAIN Time Seen by Provider: 02/25/25 14:51 Source: patient Mode of arrival: walk-in Limitations: physical limitation Limitations comment: hard to ambulate History of Present Illness HPI narrative: 84-year-old female presents for right knee pain. She gives no history of injury that started hurting on February 08. She points to the medial and superior aspects to indicate where the pain is. She has never had any serious problems with that knee before, no surgeries. No pain in the hip or ankle. She feels like it is a little bit swollen. Related Data Home Medications ?Medication ?Instructions ?Recorded ?Confirmed amlodipine 10 mg tablet 10 mg PO DAILY 02/25/25 02/25/25 atorvastatin 10 mg tablet 20 mg PO BID 02/25/25 02/25/25 glipizide 10 mg tablet 20 mg PO BID 02/25/25 02/25/25 metoprolol tartrate 50 mg tablet 50 mg PO Q12H 02/25/25 02/25/25 naproxen 500 mg tablet 500 mg PO Q12H PRN pain 02/25/25 02/25/25 omeprazole 20 mg capsule,delayed 20 mg PO DAILY 02/25/25 02/25/25 release valsartan 160 mg tablet 320 mg PO DAILY 02/25/25 02/25/25 Allergies Allergy/AdvReac Type Severity Reaction Status Date / Time codeine AdvReac Intermediate vomiting Verified 02/25/25 14:25 diazepam (From Valium) AdvReac Intermediate vomiting Verified 02/25/25 14:25 ibuprofen AdvReac Intermediate Vomiting Verified 02/25/25 14:25 pentazocine (From Talwin) AdvReac Intermediate Confusion Verified 02/25/25 14:25 aspirin AdvReac vomiting Verified 02/25/25 14:25 Penicillins AdvReac Vomiting Verified 02/25/25 14:25 Sulfa (Sulfonamide AdvReac confusion Verified 02/25/25 14:25 Antibiotics) Opioid HPI Opioid Management Most Recent Opioid Data: Last Pain Scale 9 Today, 14:29 Review of Systems ROS Narrative A ten point review of systems is negative except as noted above. PFSH PFSH Social History Little interest or pleasure in doing things: not at all Feeling down, depressed, or hopeless: not at all Exam Narrative Exam Narrative: Nurses note and vital signs reviewed and patient is not hypoxic. General:The patient appears well and in no apparent distress.Patient is resting comfortably on cart. Skin:Warm, dry, no pallor noted.There is no rash noted. Head:Normocephalic, atraumatic Eye: Normal conjunctiva, no drainage Ears, Nose, Mouth, and Throat: oral mucosa is moist. Nares patent. Cardiovascular:Regular Rate and Rhythm Respiratory:Patient is in no distress, no accessory muscle use, lungs are clear to auscultation, no wheezing, rales or rhonchi Back:non-tender GI: Soft and nontender Musculoskeletal: The knee may have some mild swelling medially. There is no bruise or rash or abrasion or ballotable effusion. The knee joint is stable. Neurological:A&O, normal speech Psychiatric:Cooperative Constitutional Vital Signs, click to edit/add: Last Vital Signs Temp 98.1 F 02/25/25 14:29 Pulse 74 02/25/25 14:29 Resp 16 02/25/25 14:29 BP 162/58 H 02/25/25 14:29 Pulse Ox 96 02/25/25 14:29 O2 Del Method Room Air 02/25/25 14:29 Course Vital Signs Vital signs: Vital Signs Temperature 98.1 F 02/25/25 14:29 Pulse Rate 74 02/25/25 14:29 Respiratory Rate 16 02/25/25 14:29 Blood Pressure 162/58 H 02/25/25 14:29 Pulse Oximetry 96 02/25/25 14:29 Oxygen Delivery Method Room Air 02/25/25 14:29 Temperature 98.1 F 02/25/25 14:29 Pulse Rate 74 02/25/25 14:29 Respiratory Rate 16 02/25/25 14:29 Blood Pressure 162/58 H 02/25/25 14:29 Pulse Oximetry 96 02/25/25 14:29 Oxygen Delivery Method Room Air 02/25/25 14:29 Medical Decision Making MDM Narrative Medical decision making narrative: X-ray shows some arthritic changes but no acute findings. Tj wrap applied, application took by me and found to be appropriate, she is neurovascularly intact. She has naproxen at home which she will take and she will follow-up with her doctor if needed. Treatment diagnosis and follow-up were discussed with the patient. Differential Diagnosis Differential Diagnosis: Arthritis, fracture, effusion Imaging Data Right knee x-ray: Radiologist's impression: ITS Impressions Knee X-Ray 02/25/25 14:55 IMPRESSION: MODERATE DEGENERATIVE CHANGES WITHOUT ACUTE BONY PROCESS. Impression dictated by: Reji Goode Jr., D.O. 02/25/2025 3:23 PM Dictation Location: [place] [address] Electronically authenticated by: [id number] Y Date: 02/25/2025 15:23 Discharge Plan Discharge Chief Complaint: Extremity Injury, Lower Clinical Impression: Arthritis of right knee Patient Disposition: Home, Self-Care Time of Disposition Decision: 15:38 Condition: Good Mode of Transportation: Private Vehicle Prescriptions / Home Meds: No Action atorvastatin 10 mg tablet 20 mg PO BID glipizide 10 mg tablet 20 mg PO BID amlodipine 10 mg tablet 10 mg PO DAILY metoprolol tartrate 50 mg tablet 50 mg PO Q12H valsartan 160 mg tablet 320 mg PO DAILY omeprazole 20 mg capsule,delayed release(DR/EC) 20 mg PO DAILY naproxen 500 mg tablet 500 mg PO Q12H PRN (Reason: pain) Print Language: [place] Instructions: Osteoarthritis (ED) Referrals: Alen Dunham MD [Primary Care Provider, Family Practice] - 1 week
--- NOTE | 2025-02-25 16:00 | PC.NURSE ---
megan wrap applied to right knee
[2025-02-25 16:05] VITALS: BP 148/60; PULSE 78; O2SAT 96
== END 2025-02-25 16:07 | disposition home or self-care (01) ==
PROVIDERS: Emergency Provider Emergency Medicine; PCP Family Medicine
DX: M17.11 Unilateral primary osteoarthritis, right knee (principal)
CPT/HCPCS: 73562; 99283